=== PATIENT | female | born 1960 | race Caucasian/White ===

== ENCOUNTER 2023-07-06 18:38 | Emergency (ER) | payer BC, SELFPAY ==
[2023-07-06 18:44] VITALS: BP 126/68; PULSE 95; RESP 16; TEMP 36.7; O2SAT 98; BMI 29.7
--- NOTE | 2023-07-06 18:52 | XR_ITS ---
[facility] [id number] Patient Name: MITUL ALEX MRN: [id number] date: 1960 Sex: F Assigned Patient Location: ER Current Patient Location: ED.MAIN Accession/Order Number: [id number] Exam Date: 07/06/2023 19:00 Report Date: 07/06/2023 20:20 At the request of: NICOLE NICHOLS Procedure: XR wrist RT min 3V IMAGES REVIEWED: XR hand RT min 3V, XR wrist RT min 3V COMPARISON: None available. CLINICAL INDICATION: pain FINDINGS/IMPRESSION: 1. No evidence of acute osseous abnormality of the right hand or right wrist. 2. Moderate wrist and dorsal hand soft tissue swelling. 3. Old ununited ulnar styloid fracture. Partially visualized fixation hardware in the distal radius and ulna. Positive ulnar variance. Electronically authenticated by: RAKAN GARCIA Date: 07/06/2023 20:20
--- NOTE | 2023-07-06 18:52 | XR_ITS ---
[facility] [id number] Patient Name: MITUL ALEX MRN: [id number] date: 1960 Sex: F Assigned Patient Location: ER Current Patient Location: ED.MAIN Accession/Order Number: [id number] Exam Date: 07/06/2023 19:00 Report Date: 07/06/2023 20:20 At the request of: NICOLE NICHOLS Procedure: XR hand RT min 3V IMAGES REVIEWED: XR hand RT min 3V, XR wrist RT min 3V COMPARISON: None available. CLINICAL INDICATION: pain FINDINGS/IMPRESSION: 1. No evidence of acute osseous abnormality of the right hand or right wrist. 2. Moderate wrist and dorsal hand soft tissue swelling. 3. Old ununited ulnar styloid fracture. Partially visualized fixation hardware in the distal radius and ulna. Positive ulnar variance. Electronically authenticated by: RAKAN GARCIA Date: 07/06/2023 20:20
--- NOTE | 2023-07-06 19:45 | ED_ITS ---
HPI - General Adult General Chief complaint: Extremity Injury, Upper Stated complaint: RT HAND/ARM SWELLING Time Seen by Provider: 07/06/23 18:41 Source: patient Mode of arrival: walk-in History of Present Illness HPI narrative: 62-year-old female presents her chief complaint right hand and forearm pain and swelling. patient has history of traumatic fracture to this extremity with hardware intact. She has had right breast mastectomy too. She presents here today with the swelling. No injury or trauma. She was concern for new fracture due to the swelling. She has no pain to the area. patient denies known history of lymphedema in the past. Related Data Allergies Allergy/AdvReac Type Severity Reaction Status Date / Time Antihistamines - Piperidine Allergy Severe Verified 07/06/23 18:49 Review of Systems ROS Narrative All Systems are negative except as noted/marked.All systems reviewed and otherwise negative Exam Narrative Exam Narrative: Nurses note and vital signs reviewed and patient is not hypoxic. General: The patient appears well and in no apparent distress. Patient is resting comfortably on cart. Skin: Warm, dry, no pallor noted. There is no rash noted. Head: Normocephalic, atraumatic Eye: Normal conjunctiva, no drainage, EOMI. PERRL Ears, Nose, Mouth, and Throat: oral mucosa is moist. Nares patent. Mouth without vesicles. Ear canals patent. Tm's without Erythema Musculoskeletal:Soft tissue swelling of right wrist consistent with probable lymphedema, neurovascular intact good capillary refill distally, chronic. The p atient has no evidence of calf tenderness, no pitting edema, symmetrical pulses noted bilaterally Neurological: A&O x4, normal speech Psychiatric: Cooperative Constitutional Vital Signs, click to edit/add: Last Vital Signs Temp 98.0 F 07/06/23 18:44 Pulse 95 H 07/06/23 18:44 Resp 16 07/06/23 18:44 BP 126/68 07/06/23 18:44 Pulse Ox 98 07/06/23 18:44 O2 Del Method Room Air 07/06/23 18:44 Course Vital Signs Vital signs: Vital Signs Temperature 98.0 F 07/06/23 18:44 Pulse Rate 95 H 07/06/23 18:44 Respiratory Rate 16 07/06/23 18:44 Blood Pressure 126/68 07/06/23 18:44 Pulse Oximetry 98 07/06/23 18:44 Oxygen Delivery Method Room Air 07/06/23 18:44 Temperature 98.0 F 07/06/23 18:44 Pulse Rate 95 H 07/06/23 18:44 Respiratory Rate 16 07/06/23 18:44 Blood Pressure 126/68 07/06/23 18:44 Pulse Oximetry 98 07/06/23 18:44 Oxygen Delivery Method Room Air 07/06/23 18:44 Medical Decision Making MDM Narrative Medical decision making narrative: 62-year-old female presents her chief complaint right hand and forearm pain and swelling. patient has history of traumatic fracture to this extremity with hardware intact. She has had right breast mastectomy too. She presents here today with the swelling. No injury or trauma. She was concern for new fracture due to the swelling. She has no pain to the area. patient denies known history of lymphedema in the past. Patient's x-ray show no acute deformity or fracture. Believe the swelling is due to soft tissue irritation or lymphedema. Patient can follow up with orthopedics. Patient verbalizes she agrees with plan of care Medical Records Medical records reviewed: Yes I reviewed the patient's medical records Imaging Data wrist: Attestation: I personally reviewed and interpreted this imaging study as follows: My impression: neg Discharge Plan Discharge Chief Complaint: Extremity Injury, Upper Clinical Impression: Soft tissue swelling Patient Disposition: Home, Self-Care Time of Disposition Decision: 19:50 Condition: Good Instructions: Swollen Joint (ED) Additional Instructions: follow up with your orthopedic dr or Dr Meyer Stand Alone Forms: Portal Instructions Referrals: Physician,Non-Staff, MD [Primary Care Provider] - 1 week Discharge Date/Time: 07/06/23 20:35
--- NOTE | 2023-07-06 19:49 | PC.NURSE ---
pt presents to ED because pt states she has bilateral breast cancer and had a mastectomy on the right side lymphad. 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 pt states 2 weeks ago her right arm below her elbow began to swell up and has been swollen for the last 2 weeks. pt denies any pain to the arm.
== END 2023-07-06 20:35 | disposition home or self-care (01) ==
PROVIDERS: Emergency Provider Internal Medicine
DX: M79.89 Other specified soft tissue disorders (principal); Z87.81 Personal history of (healed) traumatic fracture; Z90.11 Acquired absence of right breast and nipple
CPT/HCPCS: 73110; 73130; 99284

== ENCOUNTER 2023-07-14 14:06 | Outpatient (RCR) | payer BC, SELFPAY | END 2023-08-19 15:10 | disposition home or self-care (01) | LOC: OT 14:06 | DX: I89.0 Lymphedema, not elsewhere classified (principal); C50.911 Malignant neoplasm of unspecified site of right female breast | CPT/HCPCS: 97140; 97166; 97530; 97535 ==

== ENCOUNTER 2025-09-07 15:48 | Outpatient (OUT) | payer BC, SELFPAY ==
--- NOTE | 2025-09-07 16:00 | CA_ITS ---
Patient Name: MITUL ALEX MR#: [id number] : 1960 Exam Date: 09/07/2025 Ordering Doctor: DR. ALONDRA OLIVIA M.D. ECHOCARDIOGRAM REPORT PROCEDURE: CA ECHO DOPPLER COMPLETE INDICATIONS: Malignant neoplasm right breast, Cardiotoxicity COMPARISON: None. DESCRIPTION: COMPLETE ECHOCARDIOGRAM Real-time transthoracic echocardiography with 2D, M-mode, spectral and color flow Doppler performed. QUALITY: Technical quality was good. LEFT VENTRICLE: Normal chamber size. Mild concentric left ventricular hypertrophy. Global left ventricular systolic function is normal. Global longitudinal strain is mildly reduced at -15.4%. LV EF: Calculated left ventricular ejection fraction is 56%. DIASTOLIC: Normal diastolic function. ATRIAL SEPTUM: LEFT ATRIUM: Normal chamber size. RIGHT ATRIUM: Normal chamber size. RIGHT VENTRICLE: Normal chamber size. Normal right ventricular systolic function. TRICUSPID VALVE: Normal mobility and thickness. No stenosis with mild regurgitation. No evidence of pulmonary hypertension. RVSP 33 mmHg. MITRAL VALVE: Normal mobility and thickness. No evidence of mitral valve stenosis. Trivial mitral regurgitation. AORTIC VALVE: Normal trileaflet appearance. No visible sclerosis. Normal leaflet mobility. No evidence of aortic valve stenosis. No aortic regurgitation. AORTIC ROOT: Normal diameter and appearance, measuring 3.3 cm. The ascending aorta is normal in size measuring 2.8 cm. PULMONIC VALVE: Normal thickness and mobility. No stenosis. No regurgitation. PERICARDIUM: No evidence of pericardial effusion. IVC: Collapses with inspiration. Normal size. PLEURA: CONCLUSION: 1. Mild concentric left ventricular hypertrophy with normal systolic function. Calculated LVEF is 56%. Global longitudinal strain is mildly reduced at -15.4%. 2. Normal right ventricular size and systolic function. 3. Mild tricuspid regurgitation. 4. Normal diastolic function. 5. Normal right-sided pressures. Adult Echocardiography Procedure Report Left Ventricle LVEDD (3.7 - 5.6 cm): 4.65 cm LVESD (2.2 - 4.0 cm): 3.30 cm LVIVS thickness (0.6 - 1.2 cm): 1.07 cm LVPW thickness (0.5 - 1.0 cm): 1.15 cm e': 0.11 m/s E - e': 5.42 LVOT Max Gradient: 4.69 mm[Hg], 4.47 mm[Hg] LVOT Area (cm2): 1.07 m/s Peak Velocity (LVOT): 1.08 m/s, 1.06 m/s Mean Velocity (LVOT): 0.70 m/s LVOT Diameter 2.21 cm Left Ventricular Ejection Fraction: 56 % Left Atrium LA Volume Index (2D A2C): 31.66 ml/m2 Left Atrium Systolic Dimension: 3.85 cm Mitral Valve MV E to A Ratio: 1.10, 1.13 Mitral Valve A-Wave Peak Velocity: 0.55 m/s Mitral Valve E-Wave Peak Velocity: 0.62 m/s Right Ventricle RV Internal Diastolic Dimension: 3.61 cm Aorta AO Root Diam: 3.29 cm Ascending Ao Diam: 2.84 cm Aortic Valve AoV Area (Peak Sree): 3.39 cm2, 3.54 cm2, 3.26 cm2 AoV Area (VTI): 3.07 cm2, 3.14 cm2, 3.01 cm2 Peak Velocity(Antegrade Flow): 1.17 m/s, 1.24 m/s Peak Gradient(Antegrade Flow): 5.49 mm[Hg], 6.18 mm[Hg] Mean Velocity(Antegrade Flow): 0.78 m/s, 0.84 m/s Mean Gradient(Antegrade Flow): 2.91 mm[Hg], 3.28 mm[Hg] Velocity Time Integral: 22.88 cm, 23.86 cm Tricuspid Valve Peak Velocity (Regurgitant Flow): 2.75 m/s, 2.45 m/s Pulmonic Valve Peak Velocity: 0.67 m/s Peak Gradient: 2.14 mm[Hg], 1.52 mm[Hg] Right Atrium Right Atrium Systolic Pressure: 38.76 ml, 38.76 ml Dictated by: Shubham Carrero M.D. on 09/08/2025 at 09:35 Approved by: Shubham Carrero M.D. on 09/08/2025 at 09:41
== END 2025-09-07 15:49 | disposition home or self-care (01) ==
LOC: CARD 15:49
PROVIDERS: Visit Provider Internal Medicine Hematology & Oncology
DX: Z51.11 Encounter for antineoplastic chemotherapy (principal); C50.011 Malignant neoplasm of nipple and areola, right female breast; Z17.0 Estrogen receptor positive status [ER+]; C50.811 Malignant neoplasm of overlapping sites of right female breast; Z79.811 Long term (current) use of aromatase inhibitors
CPT/HCPCS: 93306; 93356